=== PATIENT | male | born 1970 | race Caucasian/White ===

== ENCOUNTER → 2023-11-25 10:04 | Outpatient (BNVA) | payer SELFPAY | PROVIDERS: Visit Provider Nurse Practitioner Family | DX: M25.572 Pain in left ankle and joints of left foot (principal); S93.402A Sprain of unspecified ligament of left ankle, initial encounter; S96.912A Strain of unspecified muscle and tendon at ankle and foot level, left foot, initial encounter; X58.XXXA Exposure to other specified factors, initial encounter; M79.89 Other specified soft tissue disorders | CPT/HCPCS: 73610 ==